=== PATIENT | female | born 1995 | race Asian ===

== ENCOUNTER → 2016-10-02 12:23 | Observation (INO) ==
--- NOTE | 2016-10-02 11:08 | OB/GYN History & Physical ---
Date of Encounter: 10/02/16 Time of Encounter: 11:05 Assessment and Plan (1) 22 weeks gestation of Current visit: Yes Status: Acute admitted for labor evaluation (2) Lower abdominal pain Current visit: Yes Status: Acute UA sent to lab EFM and toco monitoring History of Present Illness Chief complaint: lower abdominal cramping HPI: Ms. Hernandez is a 20 year old female at 22w3d presents to labor and delivery with complaints of lower abdominal pain and cramping that started early this morning. Patient denies any intercourse for past 48 hours. Patient does report some urinary frequency and dysuria. Patient denies any LOF or VB and reports + FM. Patient reports has been uncomplicated. Past Med Surg Social Fam HX - Past Medical History Source: patient Medical history: no medical history Psychiatric history: no psych history - Past Surgical History Surgical History: non-contributory - Social History Smoking Status: Never smoker Alcohol use: none Drug use: none Obstetrical History - Pregnancies : 1 Para: 0 Term: 0 : 0 Ab's: 0 Livin Medications and Allergies EPINEPHrine [Epipen] 0.3 mg IM ONCE #1 mls 10/01/15 [Rx] predniSONE [PredniSONE] 60 mg PO DAILY 5 Days 10/01/15 [Rx] Allergies Sulfa (Sulfonamide Antibiotics) Allergy (Verified 10/01/15 13:07) Rash bees Allergy (Uncoded 10/01/15 13:07) Hives Review of System OB - Constitutional Constitutional ROS IM: no chills, no fever(s), no headache(s) - Cardiovascular Cardiovascular: no chest pain, no palpitations, no syncope - Respiratory Respiratory: no dyspnea - Gastrointestinal Gastrointestinal: cramping, no diarrhea, no heartburn, no nausea, no vomiting - Genitourinary Genitourinary: dysuria, urinary frequency, no abnormal vaginal bleeding, no flank pain, no pelvic pain, no urinary urgency, no vaginal discharge, no vaginal odor Exam - Constitutional Constitutional: well developed, well nourished, no acute distress, average body habitus - HEENT HEENT: Normocephaly, Mucus Membranes Moist - Neck Neck exam: full ROM, supple - Lungs Respiratory exam: CTAB - Cardiovascular Cardiovascular exam: RRR, +S1, +S2 - Breasts Breast: bilateral: normal - Abdomen Abdomen: Present: bowel sounds normal, gravid, non tender - Extremities Extremities exam: full ROM, normal capillary refill, normal inspection Deep Tendon Reflex Grade: 2+ Normal - Uterus Uterus exam: Present: normal size, normal contour - Comments Comments: FHR 145 bpm appropriate for gestational age. No contractions noted. Occasional irritability noted. Results All other labs normal. - VTE Reasons for not Prescribing Prophylaxis: Treatment not Indicated - Low risk for VTE
[2016-10-02 11:15] LABS: Bilirubin,Urine Negative (Negative); Blood,Urine Negative (Negative); Clarity,Urine Cloudy (Clear); Color,Urine Yellow (Yellow); Glucose,Urine (UA) Normal (Normal); Ketones,Urine Negative (Negative); Leukocyte Esterase,Urine Large (Negative); Nitrite,Urine Negative (Negative); PH,Urine 7.5 pH Units (5.0-8.0); Protein,Urine Trace mg/dL (Neg-Trace); Specific Gravity,Urine 1.028 (1.010-1.025); Urobilinogen,Urine Normal (Normal)
[2016-10-02 11:20] LABS: Bacteria,Urine Many per hpf (None-Few); RBC,Urine 0-3 per hpf (0-3); Squamous Epithelial Cell,Urine Many per lpf (None-Few); WBC,Urine 50-100 per hpf (0-3)
[2016-10-02 11:34] LABS: Hyaline Casts,Urine None Seen per lpf (None-Few)
--- NOTE | 2016-10-02 12:09 | Discharge Summary ---
Date of Encounter: 10/02/16 Time of Encounter: 12:08 - Discharge Diagnosis (1) 22 weeks gestation of Priority: Primary Status: Acute Comments: observation for labor (2) Lower abdominal pain Priority: Secondary Status: Acute Comments: SVE: Closed - Discharge Medications Home Medications: EPINEPHrine [Epipen] 0.3 mg IM ONCE #1 mls 10/01/15 [Rx] predniSONE [PredniSONE] 60 mg PO DAILY 5 Days 10/01/15 [Rx] Allergies/Adverse Reactions: Allergies Sulfa (Sulfonamide Antibiotics) Allergy (Verified 10/01/15 13:07) Rash bees Allergy (Uncoded 10/01/15 13:07) Hives Data Procedures and tests throughout hospitalization: Laboratory Tests 10/02/16 10:44 Urine Color Yellow Urine Clarity Cloudy A Urine pH 7.5 Ur Specific [place] 1.028 H Urine Protein Trace Urine Glucose (UA) Normal Urine Ketones Negative Urine Blood Negative Urine Nitrite Negative Urine Bilirubin Negative Urine Urobilinogen Normal Ur Leukocyte Esterase Large H Urine Microscopic RBC 0-3 Urine Microscopic WBC 50-100 H Ur Squamous Epith Cells Many H Urine Bacteria Many H Hyaline Casts None Seen Ur Culture Indicated? YES A Labs on day of discharge: Labs from last 24 hours 10/02/16 10:44 Urine Color Yellow Urine Clarity Cloudy A Urine pH 7.5 Ur Specific [place] 1.028 H Urine Protein Trace Urine Glucose (UA) Normal Urine Ketones Negative Urine Blood Negative Urine Nitrite Negative Urine Bilirubin Negative Urine Urobilinogen Normal Ur Leukocyte Esterase Large H Urine Microscopic RBC 0-3 Urine Microscopic WBC 50-100 H Ur Squamous Epith Cells Many H Urine Bacteria Many H Hyaline Casts None Seen Ur Culture Indicated? YES A Date of admission: 10/02/16 10:17 Primary care physician: PCP NO Discharging clinician: Jeanne Avila Anticipated date of discharge: 10/02/16 - Patient Status Disposition: Home, Self-Care Condition: Good Functional capacity at discharge: independent ambulation - Discharge Instructions Follow Up With: NO,PCP [Primary Care Provider] - Mimi Ballard MD [Partnered Physician] - - Diet and Activity Activity: increase activity as tolerated Diet: regular diet Hospital Course OBSERVATORY DIRECTOR Time Attestation: Total time spent providing and/or coordinating discharge services: Time Spent: Less than 30 minutes Exam - Constitutional General appearance IM: A&O X 3, pleasant, answers questions appropriately - Other Additional findings: Speculum exam: Moderate amount of thick white discharge noted. Vaginosis panel collected and sent to lab. SVE Closed. - VTE Reasons for not Prescribing Prophylaxis: Treatment not Indicated - Low risk for VTE
[2016-10-02 13:00] LABS: Candida DNA Not Detected (Not Detect); Gardnerella DNA Not Detected (Not Detect); Trichomonas DNA Not Detected (Not Detect)
== END | disposition home or self-care (01) ==
LOC: 1NENULAB
PROVIDERS: ADMIT Obstetrics & Gynecology; ATTEND Obstetrics & Gynecology

== ENCOUNTER 2017-01-26 22:47 | Inpatient (IN) ==
[2017-01-26 22:47] LABS: Amphetamine Screen,Urine Negative ng/mL (Cutoff=1000); Barbiturate Screen,Urine Negative ng/mL (Cutoff=200); Benzodiazepines Screen,Urine Negative ng/mL (Cutoff=200); Cannabinoid Screen,Urine Negative ng/mL (Cutoff = 50); Cocaine Screen,Urine Negative ng/mL (Cutoff= 300); Opiate Screen,Urine Negative ng/mL (Cutoff=300); Phencyclidine Screen,Urine Negative ng/mL (Cutoff=25)
[~2017-01-26 22:47] MED LIST: *HR* Nalbuphine 20 MG/ML AMPUL IVP PRN; Famotidine 20 MG/2 ML VIAL IVP PRN; Metoclopramide 10 MG/2 ML VIAL IVP PRN; Naloxone 0.4 MG/ML INJ IVP PRN; Ondansetron 4 MG/2 ML VIAL IVP PRN
[2017-01-26 22:56] LABS: Basophils % 0.2 %; Eosinophils # 0.1 K/mcL (0.0-0.6); Eosinophils % 0.6 %; Hematocrit 38.5 % (35.3-44.9); Hemoglobin 13.4 g/dL (11.5-15.4); Immature Granulocytes % 0.5 % (0-4); Immature Platelets 4.6 % (1.1-6.1); Lymphocytes # 1.2 K/mcL (0.6-4.6); Lymphocytes % 7.9 %; Mean Corpuscular HGB Conc 34.8 g/dL (31.6-35.5); Mean Corpuscular Hemoglobin 32.1 pg (28.0-33.3); Mean Corpuscular Volume 92.3 fL (83.0-100.0); Mean Platelet Volume 10.6 fL (9.4-12.4); Monocytes # 0.8 K/mcL (0.0-1.3); Monocytes % 5.3 %; Neutrophils # 12.6 K/mcL (1.6-8.9); Platelet Count 215 K/mcL (140-400); Red Blood Count 4.17 M/mcL (3.82-4.97); Red Cell Distribution Width 13.1 % (11.5-14.5); Segmented Neutrophils % 85.5 %
[2017-01-26] MEDS ORDERED: Penicillin G Potassium 5,000,000 UNIT in D5% in Water (Mini-Bag+) 100 ML IVPB ONE (22:56)
--- NOTE | 2017-01-26 23:27 | OB/GYN History & Physical ---
Date of Encounter: 01/26/17 Time of Encounter: 23:17 Assessment and Plan (1) 39 weeks gestation of Current visit: Yes Status: Acute (2) Uterine contractions Current visit: Yes Status: Acute Admit to labor and delivery PCN for GBS Nubain and epidural as desired Encourage ambulation Intermittent auscultation Anticipate (3) Positive GBS test Current visit: Yes Status: Acute Will treat with PCN History of Present Illness Chief complaint: Contractions HPI: Ms. Hernandez is a 21 year old female presents to triage with complaints of contractions. Increase in contraction pain and intensity started this afternoon , now 4 minutes apart. Reports good movement, slight pink spotting, denies leaking of fluid. Uncomplicated course. Labs: A+, Rubella and Varicella immune, GBS+, all other serologies negative. Past Med Surg Social Fam HX - Past Medical History Medical history: migraine Psychiatric history: no psych history - Past Surgical History Surgical History: non-contributory - Social History Smoking Status: Never smoker Alcohol use: none Drug use: none - Family History Brother Living Status: Still Living Hx Family Cardiac Disorders: Yes (HTN) Obstetrical History - Pregnancies : 1 Para: 0 Term: 0 : 0 Ab's: 0 Livin Medications and Allergies EPINEPHrine [Epipen] 0.3 mg IM ONCE #1 mls 10/01/15 [Rx] 3 Allergy/AdvReac Type Severity Reaction Status Date / Time Sulfa (Sulfonamide Allergy Rash Verified 01/26/17 22:28 Antibiotics) bees Allergy Severe Anaphylaxis Uncoded 01/26/17 22:29 Exam - Constitutional Constitutional: well developed, well nourished, no acute distress, average body habitus - Neck Neck exam: full ROM - Lungs Respiratory exam: CTAB - Cardiovascular Cardiovascular exam: RRR - Abdomen Abdomen: Present: bowel sounds normal, gravid, non tender - Cervix Dilation: 5 (Per RN) - Uterus Uterus exam: Present: normal size, normal contour Results Result Diagrams: 01/26/17 22:48 Abnormal lab results WBC 14.8 K/mcL (4.3-11.1) H 01/26/17 22:48 Neutrophils # 12.6 K/mcL (1.6-8.9) H 01/26/17 22:48 All other labs normal. - VTE Reasons for not Prescribing Prophylaxis: Treatment not Indicated - Low risk for VTE
--- NOTE | 2017-01-26 23:39 | Anesthesia Evaluation PreOp ---
Date of Encounter: 01/26/17 Time of Encounter: 23:29 - Past History Planned Operation: vaginal del, G1 spont labor Cardiac History: Denies any Significant Hx Pulmonary History: Denies Any Significant HX GLOBAL LOGISTICS MANAGER History: Denies Any Significant HX Other Medical History: Denies Any Significant HX Anesthesia History: Past Anesthesia (wisdom teeth "slow to awaken") Alcohol Use: none Drug use: none Medications and Allergies EPINEPHrine [Epipen] 0.3 mg IM ONCE #1 mls 10/01/15 [Rx] 3 Allergy/AdvReac Type Severity Reaction Status Date / Time Sulfa (Sulfonamide Allergy Rash Verified 01/26/17 22:28 Antibiotics) bees Allergy Severe Anaphylaxis Uncoded 01/26/17 22:29 Anesthesia Results - Labs 01/26/17 22:48 Anesthesia Exam - HEENT Pupil (Motor): Pupils equal Mallampati: II Teeth: Normal Oral Opening: Greater than 3 - GLOBAL LOGISTICS MANAGER LOC: Oriented GLOBAL LOGISTICS MANAGER Motor: Normal RUE, Normal LUE, Normal RLE, Normal LLE, Normal Face GLOBAL LOGISTICS MANAGER Sensory: Normal: RUE, LUE, RLE, LLE, Face - Cardiac Rhythm: Regular Murmur: None - Pulmonary Breath Sounds: bilateral Clear Respiratory Effort: Symmetrical Anesthesia Assess/Plan ASA Score: 2 Modified [place] Scale for Level of Consciousness: Cooperative, oriented, and tranquil Anesthetic Plan: General, Regional Monitoring Plan: Standard Monitors
[2017-01-26] MEDS ORDERED: Epidural Premix (fent/bupiv) 110 ML EP ONE (23:44)
[2017-01-26] MEDS ORDERED: Penicillin G Potassium 5,000,000 UNIT in D5% in Water 100 ML IVPB ONE (23:45)
[2017-01-26] MEDS: Ringers Solution, Lactated 1,000 ML IVC SCH (23:55)
--- NOTE | 2017-01-27 02:01 | OB Labor Progress Note ---
Date of Encounter: 01/27/17 Time of Encounter: 01:59 Labor Progress Note - Subjective Subjective: Pt states contractions are becoming stronger - Cervix Cervix: 5/90/-1 - Heart Tones Heart Tones: 135/moderate/+accels/-decels - [place]: 4-5 - Plan Plan: Encouraged ambulation Intermittent monitoring PCN for GBS. Pt desires to continue natural labor and expectant management at this time anticipate
[2017-01-27] MEDS: Penicillin G Potassium 2,500,000 UNIT in D5% in Water 100 ML IVPB SCH ×2 (03:57→08:07)
[2017-01-27] MEDS ORDERED: *HR* FentaNYL (PF) 100 MCG/2 ML VIAL ONE (08:31)
[2017-01-27] MEDS ORDERED: Bupivacaine-MPF 0.25% 10 ML VIAL ONE (08:31)
[2017-01-27] MEDS ORDERED: Epidural Premix (fent/bupiv) 110 ML EP ONE (08:36)
[2017-01-27] MEDS ORDERED: *HR* FentaNYL (PF) 100 MCG/2 ML VIAL EP ONE (09:12)
[2017-01-27] MEDS ORDERED: Ondansetron 4 MG/2 ML VIAL IVP PRN (09:12)
[2017-01-27] MEDS ORDERED: EPHEDrine 50 MG/ML VIAL IVP PRN (09:12)
[2017-01-27] MEDS ORDERED: Naloxone 0.4 MG/ML INJ IVP PRN (09:12)
[2017-01-27] MEDS ORDERED: Bupivacaine-MPF 0.25% 10 ML VIAL EP ONE (09:12)
[2017-01-27] MEDS ORDERED: Epidural Premix (fent/bupiv) 110 ML EP SCH (09:15)
--- NOTE | 2017-01-27 09:17 | Anesthesia Procedures ---
Date of Encounter: 01/27/17 Time of Encounter: 08:35 Procedures: Anesthesia - Epidural/Spinal Patient ID/Chart reviewed: Yes Patient examined: Yes OB Eval: Gestational age: 39 OB Eval: : 1 OB Eval: Hx Para: 0 OB Eval: Contractions: Non-stressed pattern Consent Obtained: Yes Supplemental Oxygen: None/Room Air Supplemental Oxygen Rate (L/min): 2 Site Prep: Aseptic Technique, Sterile prep and drape, Povidone-Iodine 1% Patient position: upright Local Anesthetic: Lidocaine 1% Amount of Local Anesthetic used: 3 Touhy Needle Gauge: 18 Touhy Needle Depth (cm): 6 Catheter Depth at Skin (cm): 15 Test Dose (1.5% Lido + Epi): Volume given (mls): 3 Test Dose Result: Negative Loading Dose: 0.25% Marcaine (mls): 10 Loading Dose: Fentanyl (mcg): 100 Loading Dose Administered: Thru Catheter Infusion Med: 0.125% Bupivacaine w/ 2 mcg/ml Fentanyl Infusion Rate (mls/hr): [address]: Tegaderm, Tape Interspace Used: L4-L5 Loss of Resistance (SHANNAN): Yes Blood: No CSF: No Paresthesia: No Procedure: KISHAN placed 1st pass in upright position without any immediate noted complications. VSS throughout Vitals + FHT's: 0835 BP 127/72 P 71 R 18 0910 BP 120/68 P 86 R 16 FHT 130s
[2017-01-27] MEDS ORDERED: Oxytocin 20 units/ LR 1000 mL 20 UNIT/1,000 ML BAG IVC ONE (09:24)
[2017-01-27] MEDS: Ringers Solution, Lactated 1,000 ML IVC SCH (10:37)
[2017-01-27] MEDS ORDERED: Oxytocin 20 units/ LR 1000 mL 20 UNIT/1,000 ML BAG IVC SCH ×2 (11:20→16:24)
--- NOTE | 2017-01-27 14:04 | OB/GYN Procedure Note ---
Delivery - Delivery Date: 01/27/17 Provider: Jeanne Avila Intrapartum events: none Delivery induction: none Delivery augmentation: rupture of membranes (at 8cm) Delivery monitor: external FHT, external uterine Anesthesia: epidural Estimated Blood Loss: 250 - Infant (s) A Infant Delivery Date: 01/27/17 Infant Delivery Time: 13:36 Presentation: vertex Position: LUANNE Route of delivery: Gender: Male Viability: Viable Pounds: 7 Ounces: 15 Weight Gram: 3595 kg at 1 minute: 8 at 5 mins: 8 Shoulder Dystocia: not encountered Placenta: spontaneous Cord: 3 umbilical vessels - Repair Episiotomy: none Laceration Description: Perineal - 2nd Degree (repaired with 3-0 vicryl) - Complications Delivery complications: none - Disposition Mom disposition: stable in LDR Sharon disposition: stable in LDR - Comments Comments: At bedside for AROM, after AROM moderate amount of clear fluid patient advanced from 8cm to 10cm. Patient began pushing with contractions. Patient spontaneously delivered and viable male infant over a second degree perineal laceration. No nuchal cord, no shoulder dystocia or meconium was encountered. Infant was placed on maternal abdomen. Cord was clamped and cut after pulsation ceased. was placed skin to skin. A second degree laceration was repaired with 3-0 vicryl. Spontaneous delivery of intact placenta. All counts correct. Both mother and stable in LDR for recovery.
[2017-01-27] MEDS ORDERED: Benzocaine/Menthol 56 GM AEROSOL SPRAY TP PRN (16:24)
[2017-01-27] MEDS ORDERED: Measles/Mumps/Rubella Vacc 0.5 ML VIAL SQ PRN (16:24)
[2017-01-27] MEDS ORDERED: Ibuprofen 600 MG TABLET PO PRN (16:24)
[2017-01-27] MEDS ORDERED: Lanolin 7 G OINT...G. TP PRN (16:24)
[2017-01-27] MEDS ORDERED: *HR* Promethazine 25 MG/ML VIAL IVP PRN (16:29)
[2017-01-27] MEDS: Acetaminophen 325 MG TABLET PO PRN (20:52)
[2017-01-28] MEDS: Acetaminophen 325 MG TABLET PO PRN (05:23)
--- NOTE | 2017-01-28 06:56 | Discharge Summary ---
Date of Encounter: 01/28/17 Time of Encounter: 06:40 - Discharge Diagnosis (1) Status post vaginal delivery Priority: Primary Status: Acute (2) 39 weeks gestation of Priority: Primary Status: Resolved - Discharge Medications Prescriptions: Ibuprofen [Motrin] 600 mg PO Q6HR PRN #60 tablet PRN Reason: Cramping Docusate [Colace] 100 mg PO BID #30 capsule Home Medications: EPINEPHrine [Epipen] 0.3 mg IM ONCE #1 mls 10/01/15 [Rx] Docusate [Colace] 100 mg PO BID #30 capsule 01/28/17 [Rx] Ibuprofen [Motrin] 600 mg PO Q6HR PRN #60 tablet 01/28/17 [Rx] Vit/FA 1 each PO DAILY tablet 01/28/17 [Rx] Allergies/Adverse Reactions: 3 Allergy/AdvReac Type Severity Reaction Status Date / Time Sulfa (Sulfonamide Allergy Rash Verified 01/26/17 22:28 Antibiotics) bees Allergy Severe Anaphylaxis Uncoded 01/26/17 22:29 Data Procedures and tests throughout hospitalization: Laboratory Tests 01/26/17 01/26/17 22:30 22:48 WBC 14.8 H RBC 4.17 Hgb 13.4 Hct 38.5 MCV 92.3 MCH 32.1 MCHC 34.8 RDW 13.1 Plt Count 215 MPV 10.6 Immature Gran % 0.5 Seg Neutrophils % 85.5 Lymphocytes % 7.9 Monocytes % 5.3 Eosinophils % 0.6 Basophils % 0.2 Neutrophils # 12.6 H Lymphocytes # 1.2 Monocytes # 0.8 Eosinophils # 0.1 Basophils # 0.0 Immature Plt Fraction 4.6 Urine Opiates Screen Negative Ur Barbiturates Screen Negative Ur Phencyclidine Scrn Negative Ur Amphetamines Screen Negative U Benzodiazepines Scrn Negative Urine Cocaine Screen Negative U Marijuana (THC) Screen Negative Date of admission: 01/26/17 22:48 Primary care physician: PCP NONE Consults: 01/27/17 16:24 Consult to Cook Vegetable [CONS] Routine Comment: Vaginal delivery, consult needed Discharging clinician: Ulysses Tuttle Anticipated date of discharge: 01/28/17 - Patient Status Disposition: Home, Self-Care Condition: Good Functional capacity at discharge: independent ambulation Overall status at discharge: patient is progressing back to baseline - Discharge Instructions Follow Up With: NONE,PCP [Primary Care Provider] - - Diet and Activity Activity: resume usual activities as tolerated Diet: regular diet Hospital Course Reason for admission: IUP - Delivery: Episiotomy: none Laceration: 2nd degree Other procedures: none complications: perineal laceration Discharge diagnosis: IUP at term delivered [place] baby: male Hospital course: Ms. Hernandez is a 21 year old female that presented to triage with complaints of contractions. Increase in contraction pain and intensity started in the afternoon, about 4 minutes apart. Reported good movement, slight pink spotting, denied leaking of fluid. Uncomplicated course. At bedside for AROM, after AROM moderate amount of clear fluid patient advanced from 8cm to 10cm. Patient began pushing with contractions. Patient spontaneously delivered and viable male over a second degree perineal laceration. No nuchal cord, no shoulder dystocia or meconium was encountered. was placed on maternal abdomen. Cord was clamped and cut after pulsation ceased. was placed skin to skin. A second degree laceration was repaired with 3-0 vicryl. Spontaneous delivery of intact placenta. All counts correct. Both mother and infant stable in LDR for recovery. When seen today, patient says that she is doing well and in good mood. She has been breast-feeding the baby and the baby has been doing well. Her appetite has been normal. She has been able to void and pass gas. No bowel movement yet. She has been able to ambulate well. She says that she was nauseous and vomiting last night, but nothing now. Her abdominal cramping has been intermittent and has been a 5/10 in pain scale at it's worst. Her vaginal bleeding has been light and has been improving since the delivery. She denies any headaches, dizziness, fever, chills , chest pain, or shortness of breath. She has a follow-up appointment with Silvia Martinez on 02/25/17. Delivery - Delivery Date: 01/27/17 Provider: Jeanne Avila Intrapartum events: none Delivery induction: none Delivery augmentation: rupture of membranes (at 8cm) Delivery monitor: external FHT, external uterine Anesthesia: epidural Estimated Blood Loss: 250 - Infant (s) A Delivery Date: 01/27/17 Delivery Time: 13:36 Presentation: vertex Position: LUANNE Route of delivery: Gender: Male Viability: Viable Pounds: 7 Ounces: 15 Weight Gram: 3595 kg at 1 minute: 8 at 5 mins: 8 Shoulder Dystocia: not encountered Placenta: spontaneous Cord: 3 umbilical vessels - Repair Episiotomy: none Laceration Description: Perineal - 2nd Degree (repaired with 3-0 vicryl) - Complications Delivery complications: none - Disposition Mom disposition: stable in LDR disposition: stable in LDR Time Attestation: Total time spent providing and/or coordinating discharge services: Time Spent: Less than 30 minutes Exam - Constitutional Vitals: Temp Pulse Resp BP Pulse Ox 98 F 82 16 122/82 99 01/28/17 05:10 01/28/17 05:10 01/28/17 05:10 01/28/17 05:10 01/28/17 05:10 General appearance IM: A&O X 3, pleasant, no acute distress, answers questions appropriately - Respiratory Respiratory exam: Present: CTAB - Cardiovascular Cardiovascular exam IM: Present: RRR, +S1, +S2 - GI/Abdominal GI/Abdominal exam IM: normal bowel sounds, soft - Uterine Tone: Firm - Extremities Exam Extremities exam IM: Present: full ROM, normal inspection, radial pulses palpable and symmetrical. Absent: calf tenderness, pedal edema Additional comments: Pedal pulses intact and symmetrical bilaterally. - Neurological Exam Neurological exam: reflexes normal
[2017-01-28 08:13] VITALS: BP 104/67
[2017-01-28] MEDS ORDERED: Prenatal Vit/FA 1 EACH TABLET PO SCH (09:00)
== END 2017-01-28 16:10 | disposition home or self-care (01) | DRG 775 ==
LOC: 1NENULAB → 1NENUOBS 01-27 16:25
PROVIDERS: ADMIT Advanced Practice Midwife; ATTEND Advanced Practice Midwife

== ENCOUNTER → 2018-11-03 14:10 | Observation (INO) ==
[2018-11-03 12:34] LABS: Amphetamine Screen,Urine Negative ng/mL (Cutoff=1000); Barbiturate Screen,Urine Negative ng/mL (Cutoff=200); Benzodiazepines Screen,Urine Negative ng/mL (Cutoff=200); Cannabinoid Screen,Urine Negative ng/mL (Cutoff = 50); Cocaine Screen,Urine Negative ng/mL (Cutoff= 300); Opiate Screen,Urine Negative ng/mL (Cutoff=300); Phencyclidine Screen,Urine Negative ng/mL (Cutoff=25)
--- NOTE | 2018-11-03 13:53 | Discharge Summary ---
Date of Encounter: 11/03/18 Time of Encounter: 13:53 - Discharge Diagnosis (1) 34 weeks gestation of Priority: Primary Status: Acute Comments: admitted for prolonged monitoring POC discussed with Dr. Ballard. BPP in office 10/22 (2) NST (non-stress test) reactive on surveillance Priority: Secondary Status: Acute Comments: RNST: FHR 125 bpm moderate variability +15x15 accels no decels noted. CAt. 1 tracing - Discharge Medications Prescriptions: No Action EPINEPHrine [Epipen] 0.3 mg IM ONCE #1 mls Docusate [Colace] 100 mg PO BID #30 capsule Ibuprofen [Motrin] 600 mg PO Q6HR PRN #60 tablet PRN Reason: Cramping Vit/FA 1 each PO DAILY tablet Breast Pump [BREAST PUMP] 1 each .ROUTE AD #1 each Sertraline [Zoloft] 50 mg PO DAILY Home Medications: EPINEPHrine [Epipen] 0.3 mg IM ONCE #1 mls 10/01/15 [Rx] Breast Pump [BREAST PUMP] 1 each .ROUTE AD #1 each 01/28/17 [Rx] Docusate [Colace] 100 mg PO BID #30 capsule 01/28/17 [Rx] Ibuprofen [Motrin] 600 mg PO Q6HR PRN #60 tablet 01/28/17 [Rx] Vit/FA 1 each PO DAILY tablet 01/28/17 [Rx] Sertraline [Zoloft] 50 mg PO DAILY 11/03/18 [History] Allergies/Adverse Reactions: Allergy/AdvReac Type Severity Reaction Status Date / Time Sulfa (Sulfonamide Allergy Rash Verified 01/26/17 22:28 Antibiotics) bees Allergy Severe Anaphylaxis Uncoded 01/26/17 22:29 Data Procedures and tests throughout hospitalization: Laboratory Tests 11/03/18 11:40 Urine Opiates Screen Negative Ur Buprenorphine Scrn Negative Ur Barbiturates Screen Negative Ur Phencyclidine Scrn Negative Ur Amphetamines Screen Negative U Benzodiazepines Scrn Negative Urine Cocaine Screen Negative U Marijuana (THC) Screen Negative Ur Drug Screen Interp See Below Labs on day of discharge: Labs from last 24 hours 11/03/18 11:40 Urine Opiates Screen Negative Ur Buprenorphine Scrn Negative Ur Barbiturates Screen Negative Ur Phencyclidine Scrn Negative Ur Amphetamines Screen Negative U Benzodiazepines Scrn Negative Urine Cocaine Screen Negative U Marijuana (THC) Screen Negative Ur Drug Screen Interp See Below Date of admission: 11/03/18 11:13 Primary care physician: PCP NONE Discharging clinician: Jeanne Avila Anticipated date of discharge: 11/03/18 - Patient Status Disposition: Home, Self-Care Condition: Good Functional capacity at discharge: independent ambulation - Discharge Instructions Follow Up With: NONE,PCP [Primary Care Provider] - Jeanne Avila CNM [Non-Partnered Physician] - - Diet and Activity Activity: increase activity as tolerated Diet: regular diet Hospital Course ARCHITECT MARINE Hospital course: Patient is a 22 y/o @ 34w3d gestational age presented to labor and delivery from the OB office for prolonged monitoring after having decels on NST in office. Patient did have a BPP 10/22. Patient reports good movement. Denies contractions, LOF or VB. Time Attestation: Total time spent providing and/or coordinating discharge services: Time Spent: Less than 30 minutes Exam - Constitutional General appearance IM: A&O X 3, pleasant, answers questions appropriately - Other Additional findings: FHR 125 bpm moderate variability +15x15 accels no decels noted. Cat. 1 tracing - VTE Reasons for not Prescribing Prophylaxis: Treatment not Indicated - Low risk for VTE
== END | disposition home or self-care (01) ==
LOC: 1NENULAB
PROVIDERS: ADMIT Advanced Practice Midwife; ATTEND Advanced Practice Midwife

== ENCOUNTER 2018-12-09 09:55 | Inpatient (IN) ==
[2018-12-09] MEDS ORDERED: Metoclopramide 10 MG/2 ML VIAL IVP PRN (11:27)
[2018-12-09] MEDS ORDERED: Naloxone 0.4 MG/ML INJ IVP PRN ×2 (11:27→11:48)
[2018-12-09] MEDS ORDERED: Famotidine 20 MG/2 ML VIAL IVP PRN (11:27)
[2018-12-09] MEDS ORDERED: Ondansetron 4 MG/2 ML VIAL IVP PRN ×2 (11:27→11:48)
[2018-12-09] MEDS ORDERED: *HR* Nalbuphine 10 MG/ML AMPUL IVP PRN (11:27)
[2018-12-09] MEDS ORDERED: Ringers Solution, Lactated 1,000 ML IVC SCH (11:30)
[2018-12-09] MEDS ORDERED: Ringers Solution, Lactated 1,000 ML ONE (11:33)
[2018-12-09] MEDS ORDERED: EPHEDrine 50 MG/ML VIAL IVP PRN (11:48)
[2018-12-09] MEDS ORDERED: *HR* FentaNYL (PF) 100 MCG/2 ML VIAL EP ONE (11:48)
[2018-12-09] MEDS ORDERED: Ropivacaine/PF 0.2% 20 ML VIAL EP ONE (11:48)
[2018-12-09 11:50] LABS: Basophils % 0.3 %; Eosinophils % 0.2 %; Hemoglobin 12.5 g/dL (11.5-15.4); Immature Granulocytes % 0.6 % (0-4); Lymphocytes # 1.4 K/mcL (0.6-4.6); Lymphocytes % 11.4 %; Mean Corpuscular HGB Conc 32.9 g/dL (31.6-35.5); Mean Corpuscular Volume 91.1 fL (83.0-100.0); Mean Platelet Volume 10.5 fL (9.4-12.4); Monocytes # 0.6 K/mcL (0.0-1.3); Monocytes % 4.6 %; Neutrophils # 10.2 K/mcL (1.6-8.9); Platelet Count 224 K/mcL (140-400); Red Blood Count 4.17 M/mcL (3.82-4.97); Red Cell Distribution Width 12.7 % (11.5-14.5); Segmented Neutrophils % 82.9 %; White Blood Count 12.3 K/mcL (4.3-11.1)
--- NOTE | 2018-12-09 11:52 | Anesthesia Evaluation PreOp ---
Date of Encounter: 12/09/18 Time of Encounter: 11:41 - Past History Planned Operation: KISHAN Cardiac History: Denies any Significant Hx Pulmonary History: Denies Any Significant HX BENCH LAY OUT TECHNICIAN History: Denies Any Significant HX Other Medical History: Denies Any Significant HX, Other (Recent vaginal yeast infection.) Anesthesia History: No Prior Anesthetic Complications, Past Anesthesia (Previous epidural) : Yes Alcohol Use: none Drug use: none Medications and Allergies EPINEPHrine [Epipen] 0.3 mg IM ONCE #1 mls 10/01/15 [Rx] Breast Pump [BREAST PUMP] 1 each .ROUTE AD #1 each 01/28/17 [Rx] Docusate [Colace] 100 mg PO BID #30 capsule 01/28/17 [Rx] Ibuprofen [Motrin] 600 mg PO Q6HR PRN #60 tablet 01/28/17 [Rx] Vit/FA 1 each PO DAILY tablet 01/28/17 [Rx] Sertraline [Zoloft] 50 mg PO DAILY 11/03/18 [History] Allergy/AdvReac Type Severity Reaction Status Date / Time Sulfa (Sulfonamide Allergy Rash Verified 01/26/17 22:28 Antibiotics) bees Allergy Severe Anaphylaxis Uncoded 01/26/17 22:29 - Meds/Allergy Pre-op Review Medications Reviewed: Yes Allergies Reviewed: Yes Beta Blockers on Current Med List: No Anesthesia Exam BP 123/75 P 78 R 16 T 97.2 Height: 5'5" Weight: 69.5kg NPO (# of Hours): 4 Pain Scale: 4 Pain Scale Used: Numeric (1 - 10) - HEENT Pupil (Motor): Pupils equal Mallampati: II Teeth: Normal Oral Opening: Greater than 3 - BENCH LAY OUT TECHNICIAN LOC: Oriented BENCH LAY OUT TECHNICIAN Motor: Normal RUE, Normal LUE, Normal RLE, Normal LLE, Normal Face BENCH LAY OUT TECHNICIAN Sensory: Normal: RUE, LUE, RLE, LLE, Face - Cardiac Rhythm: Regular Murmur: None JVD: No Carotid Bruit: No - Pulmonary Breath Sounds: bilateral Clear Respiratory Effort: Symmetrical Anesthesia Assess/Plan ASA Score: 2 Level of consciousness: Cooperative, Oriented, Tranquil Anesthetic Plan: Epidural Autologous Blood: No Monitoring Plan: Standard Monitors Recovery Plan: Other
[2018-12-09] MEDS ORDERED: Epidural Premix (fent/bupiv) 110 ML EP SCH (12:00)
--- NOTE | 2018-12-09 12:04 | OB/GYN History & Physical ---
Date of Encounter: 12/09/18 Time of Encounter: 12:01 Assessment and Plan (1) Spontaneous onset of labor Current visit: Yes Status: Acute Admit for delivery -Epidural for pain management -AROM when appropriate -Anticipate (2) 39 weeks gestation of Current visit: No Status: Resolved Admit for spontaneous onset of labor History of Present Illness Chief complaint: Spontaneous labor at 39w4d HPI: Ms. Hernandez is a 23 year old female at 39w4d who arrives for labor evaluation. She states her contractions started in the middle of the night and woke her periodically but when she got up today, the contractions just felt "different." On arrival, she was found to be 6-7 cm dilated. She reports positive movement and denies vaginal fluid leaking. She does report some bloody show. She denies any complications with this . Blood type HbSAG T. Pall Rubella Varicella HIV Past Med Surg Social Fam HX - Past Medical History Source: patient Medical history: migraine Psychiatric history: anxiety - Past Surgical History Surgical History: non-contributory Additional surgical history: wisdom teeth - Social History Smoking Status: Never smoker Alcohol use: none Drug use: none Current living situation: Home - Independent Activity Level: Independent ambulation Recent Out of Country Travel Within the Last 8 Weeks: No Exposure or Possible Exposure to Illness During Travel: No - Family History Brother Living Status: Still Living Hx Family Cardiac Disorders: Yes (HTN) Obstetrical History - Pregnancies : 2 Para: 1 Term: 1 : 0 Ab's: 0 Livin Medications and Allergies RX: EPINEPHrine [Epipen] 0.3 mg IM ONCE #1 mls 10/01/15 [Rx] Breast Pump [BREAST PUMP] 1 each .ROUTE AD #1 each 01/28/17 [Rx] RX: Docusate [Colace] 100 mg PO BID #30 capsule 01/28/17 [Rx] RX: Ibuprofen [Motrin] 600 mg PO Q6HR PRN #60 tablet 01/28/17 [Rx] RX: Vit/FA 1 each PO DAILY tablet 01/28/17 [Rx] Sertraline [Zoloft] 50 mg PO DAILY 11/03/18 [History] Allergy/AdvReac Type Severity Reaction Status Date / Time Sulfa (Sulfonamide Allergy Rash Verified 01/26/17 22:28 Antibiotics) bees Allergy Severe Anaphylaxis Uncoded 01/26/17 22:29 Exam - Constitutional Constitutional: well developed, well nourished, no acute distress, average body habitus - HEENT HEENT: Normocephaly, Mucus Membranes Moist - Neck Neck exam: full ROM - Lungs Respiratory exam: CTAB - Cardiovascular Cardiovascular exam: RRR, +S1, +S2 - Abdomen Abdomen: Present: bowel sounds normal, gravid, non tender - Extremities Extremities exam: full ROM, normal capillary refill, normal inspection - Vulva Vulva: bilateral: normal - Vagina Vagina: Present: normal moisture - Cervix Dilation: 6 (6-7 per RN exam) - Uterus Uterus exam: Present: normal size, normal contour - Anus/Rectum Anus/Rectum: Present: normal perianal skin Results Result Diagrams: 12/09/18 11:25 Abnormal lab results WBC 12.3 K/mcL (4.3-11.1) H 12/09/18 11:25 Neutrophils # 10.2 K/mcL (1.6-8.9) H 12/09/18 11:25 All other labs normal. - VTE Reasons for not Prescribing Prophylaxis: Treatment not Indicated - Low risk for VTE
[2018-12-09] MEDS ORDERED: Oxytocin 20 units/ LR 1000 mL 20 UNIT/1,000 ML BAG IVC ONE ×2 (12:39→19:08)
--- NOTE | 2018-12-09 12:43 | Anesthesia Procedures ---
Date of Encounter: 12/09/18 Time of Encounter: 12:04 Procedures: Anesthesia - Epidural/Spinal Patient ID/Chart reviewed: Yes Patient examined: Yes OB Eval: Gestational age: 39 OB Eval: : 2 OB Eval: Hx Para: 1 OB Eval: Dilated at (cm): 7 OB Eval: Contractions: Non-stressed pattern Consent Obtained: Yes Supplemental Oxygen: None/Room Air Site Prep: Aseptic Technique, Sterile prep and drape, Povidone-Iodine 1% Patient position: upright Local Anesthetic: Lidocaine 1% Amount of Local Anesthetic used: 3 Touhy Needle Gauge: 18 Touhy Needle Depth (cm): 5 Catheter Depth at Skin (cm): 14 Test Dose (1.5% Lido + Epi): Volume given (mls): 3 Test Dose Result: Negative Loading Dose: Fentanyl (mcg): 100 Loading Dose: Other: Ropivicaine 0.2% 5ml, 3ml Normal saline Loading Dose Administered: Thru Catheter Infusion Rate (mls/hr): [address]: Tegaderm, Tape Interspace Used: L4-L5 Loss of Resistance (SHANNAN): Yes Blood: No CSF: No Paresthesia: No Procedure: KISHAN placed 1st pass in upright position. SHANNAN achieved with Normal saline. Catheter threaded with ease to 14cm at the skin. Test dose negative. Pt stated comfort following bolus dose administration. VSS throughout. Vitals + FHT's: 1204 BP 130/82 P 77 R 18 1226 BP 129/70 P 66 R 16 FHT 125
[2018-12-09] MEDS ORDERED: Famotidine 20 MG/2 ML VIAL IVP ONE (15:27)
--- NOTE | 2018-12-09 18:34 | OB Labor Progress Note ---
Date of Encounter: 12/09/18 Time of Encounter: 15:00 Labor Progress Note - Subjective Subjective: Patient resting comfortably with epidural in place. - Vital Signs Vital Signs: WNL - Cervix Cervix: 9/100/0 - Heart Tones Heart Tones: Reactive, Category I tracing - [place]: 2-4 minutes - Interventions Interventions: SVE BBOW noted - Plan Physician notified: Yes Physician notified details: Dr. Thrasher aware of SVE Plan: Anticipate AROM after patient has had a chance to rest.
--- NOTE | 2018-12-09 18:45 | OB/GYN Procedure Note ---
Delivery - Delivery Date: 12/09/18 Provider: Evy Augustine Intrapartum events: none Delivery induction: none Delivery augmentation: rupture of membranes Delivery monitor: external FHT, external uterine Anesthesia: epidural Quantitated Blood Loss: 50 - Infant (s) Infant A Delivery Date: 12/09/18 Infant Delivery Time: 17:32 Presentation: vertex Position: ZACKERY Route of delivery: Gender: Female Viability: Viable at 1 minute: 8 at 5 mins: 9 Shoulder Dystocia: not encountered Placenta: spontaneous - Repair Episiotomy: none Laceration Description: Perineal - 1st Degree - Complications Delivery complications: none Delivery comments: To room for SVE. Patient found to be completely dilated and +1 station with BBOW. With patient's permission, AROM for moderate amount of clear fluid. vertex descended rapidly at which time we prepped for delivery. Under maternal effort, spontaneous delivery of female over first degree perineal laceration, repaired with 3-0 Vicryl. Infant placed on maternal abdomen for drying and stimulation. Cord clamped and cut after pulsation ceased. Spontaneous delivery of intact placenta, EBL 50 mL's. No nuchal cord, shoulder dystocia, or meconium encountered. Mother and infant in kangaroo care for 2 hour recovery. - Disposition Mom disposition: stable in LDR [place] disposition: stable in LDR
[2018-12-09] MEDS ORDERED: Acetaminophen 325 MG TABLET PO PRN (20:32)
[2018-12-09] MEDS ORDERED: Oxytocin 20 units/ LR 1000 mL 20 UNIT/1,000 ML BAG IVC SCH (20:32)
[2018-12-09] MEDS ORDERED: Lanolin 7 G OINT...G. TP PRN (20:32)
[2018-12-09] MEDS: Ibuprofen 600 MG TABLET PO PRN (20:45)
[2018-12-10] MEDS: Ibuprofen 600 MG TABLET PO PRN ×3 (04:41→10:47)
[2018-12-10] MEDS: Benzocaine/Menthol 56 GM AEROSOL SPRAY TP PRN ×2 (04:43→04:47)
[2018-12-10 07:47] VITALS: BP 122/77
[2018-12-10] MEDS ORDERED: Prenatal Vit/FA 1 EACH TABLET PO SCH (09:00)
--- NOTE | 2018-12-10 12:22 | Discharge Summary ---
Date of Encounter: 12/10/18 Time of Encounter: 12:21 - Discharge Diagnosis (1) Yeast infection Priority: Secondary Status: Acute (2) Status post vaginal delivery Priority: Primary Status: Acute Comments: Stable, meeting all PP milestones, leeding is decreasing, , pt states still feels vaginal discomfort and was treating with monistat OTC (7 da y), but only had 2 days, desires to continue treatment, will discharge on diflucan 1 dose. - Discharge Medications Prescriptions: New Acetaminophen [Tylenol] 650 mg PO Q6H PRN tablet PRN Reason: Mild Pain Ibuprofen [Motrin] 600 mg PO Q6H PRN #60 tablet PRN Reason: Cramping Docusate [Colace] 100 mg PO BID capsule Lanolin [Lansinoh] 1 appl TP TID PRN oint...g. PRN Reason: Sore Nipples Fluconazole [Diflucan] 150 mg PO ONCE #1 tab Continued EPINEPHrine [Epipen] 0.3 mg IM ONCE #1 mls Ibuprofen [Motrin] 600 mg PO Q6HR PRN #60 tablet PRN Reason: Cramping Vit/FA 1 each PO DAILY tablet Breast Pump [BREAST PUMP] 1 each .ROUTE AD #1 each Sertraline [Zoloft] 50 mg PO DAILY Docusate [Colace] 100 mg PO BID #30 capsule Home Medications: EPINEPHrine [Epipen] 0.3 mg IM ONCE #1 mls 10/01/15 [Rx] Breast Pump [BREAST PUMP] 1 each .ROUTE AD #1 each 01/28/17 [Rx] Ibuprofen [Motrin] 600 mg PO Q6HR PRN #60 tablet 01/28/17 [Rx] Vit/FA 1 each PO DAILY tablet 01/28/17 [Rx] Sertraline [Zoloft] 50 mg PO DAILY 11/03/18 [History] Acetaminophen [Tylenol] 650 mg PO Q6H PRN tablet 12/10/18 [Rx] Docusate [Colace] 100 mg PO BID capsule 12/10/18 [Rx] Docusate [Colace] 100 mg PO BID #30 capsule 12/10/18 [Rx] Fluconazole [Diflucan] 150 mg PO ONCE #1 tab 12/10/18 [Rx] Ibuprofen [Motrin] 600 mg PO Q6H PRN #60 tablet 12/10/18 [Rx] Lanolin [Lansinoh] 1 appl TP TID PRN oint...g. 12/10/18 [Rx] Allergies/Adverse Reactions: Allergy/AdvReac Type Severity Reaction Status Date / Time Sulfa (Sulfonamide Allergy Rash Verified 01/26/17 22:28 Antibiotics) bees Allergy Severe Anaphylaxis Uncoded 01/26/17 22:29 Data Procedures and tests throughout hospitalization: Laboratory Tests 12/09/18 11:25 WBC 12.3 H RBC 4.17 Hgb 12.5 Hct 38.0 MCV 91.1 MCH 30.0 MCHC 32.9 RDW 12.7 Plt Count 224 MPV 10.5 Immature Gran % 0.6 Seg Neutrophils % 82.9 Lymphocytes % 11.4 Monocytes % 4.6 Eosinophils % 0.2 Basophils % 0.3 Neutrophils # 10.2 H Lymphocytes # 1.4 Monocytes # 0.6 Eosinophils # 0.0 Basophils # 0.0 Date of admission: 12/09/18 09:55 Primary care physician: PCP NONE Consults: 12/09/18 20:32 Consult to [facility] [CONS] Routine Comment: Vaginal delivery, consult needed Discharging clinician: Lucila Navarro Anticipated date of discharge: 12/10/18 - Patient Status Disposition: Home, Self-Care Condition: Good Functional capacity at discharge: independent ambulation Overall status at discharge: patient is progressing back to baseline - Discharge Instructions Follow Up With: NONE,PCP [Primary Care Provider] - - Diet and Activity Activity: resume usual activities as tolerated Diet: regular diet Hospital Course Reason for admission: IUP at term Delivery: Episiotomy: none Laceration: 1st degree Other procedures: none complications: none Discharge diagnosis: IUP at term delivered baby: female Hospital course: Delivery - Delivery Date: 12/09/18 Provider: Evy Augustine Intrapartum events: none Delivery induction: none Delivery augmentation: rupture of membranes Delivery monitor: external FHT, external uterine Anesthesia: epidural Quantitated Blood Loss: 50 - Infant (s) A Infant Delivery Date: 12/09/18 Infant Delivery Time: 17:32 Presentation: vertex Position: ZACKERY Route of delivery: Gender: Female Viability: Viable at 1 minute: 8 at 5 mins: 9 Shoulder Dystocia: not encountered Placenta: spontaneous - Repair Episiotomy: none Laceration Description: Perineal - 1st Degree STable in PP and appropriate for discharge Time Attestation: Total time spent providing and/or coordinating discharge services: Time Spent: Less than 30 minutes Exam - Constitutional Vitals: Temp Pulse Resp BP Pulse Ox 97.5 F L 56 14 122/77 100 12/10/18 07:47 12/10/18 07:47 12/10/18 07:47 12/10/18 07:47 12/10/18 07:47 General appearance IM: A&O X 3 - Respiratory Respiratory exam: Present: CTAB - Cardiovascular Cardiovascular exam IM: Present: RRR - GI/Abdominal GI/Abdominal exam IM: soft - Uterine Tone: Firm Uterus Position: At Umbilicus - Extremities Exam Extremities exam IM: Present: normal capillary refill, radial pulses palpable and symmetrical - Neurological Exam Neurological exam: normal gait, oriented X3 - Psychiatric Additional comments: reports good mood
[2018-12-10] MEDS ORDERED: FLU Vac QV 19-20 (6Month+)/PF 0.5 ML SYRINGE IM ONE (13:45)
== END 2018-12-10 14:38 | disposition home or self-care (01) | DRG 806 ==
LOC: 1NENULAB → OBSVTOIN 09:55 → 1NENUOBS 20:31
PROVIDERS: ADMIT Registered Nurse; ATTEND Registered Nurse